=== PATIENT | female | born 1980 | race Asian ===

== ENCOUNTER 2019-02-13 08:28 | Emergency (ER) | payer OTHER ==
--- OUTSIDE RECORDS SUMMARY | 2019-02-13 08:38 | XMS REPORT | Continuity of Care Document ---
:1980 External Reference #:[id number] Author Name Daryn Farah Care Team Providers Name Role Phone Alivia Brice MD Primary Care Physician Unavailable Payers Date Identification Numbers Payment Provider Subscriber Policy Number: [id number] [employer] Sally Beckham Group Number: [id number] [address] PayID: [id number] [place] [address] Effective: 2011 Policy Number: [id number] Medicaid Sally Beckham Expires: 2014 Group Name: [id number] [address] PayID: [id number] [place] [address] Problems Active Problems Provider Date Atypical glandular cells on cervical Papanicolaou Sarah Talamantes M.D. Onset: smear Family History Date Family Member(s) Observation Comments First Son Alive And Well Social History Type Date Description Comments Sex Unknown Marital Status Lives With Boyfriend Lives With Son ETOH Use Currently consumes 1 - 2 wine or alcohol whiskey Tobacco Use Start: Unknown End: Patient is a former Unknown smoker Smoking Status Reviewed: 02/06/19 Patient is a former smoker Exercise Exercises regularly 2 - 3 days weekly Type/Frequency running, yoga Allergies, Adverse Reactions, Alerts Description No Known Drug Allergies Medications Active Medications SIG Qnty Indications Ordering Date Provider Ibuprofen 1 tab by mouth 30tabs S16.1xxA Kathleen Lizama, 02/06/2019 600mg Tablets three times a M.D. day as needed Cyclobenzaprine HCL take 1 tablet 14tabs S16.1xxA Kathleen Lizama, 2018 5mg by mouth bid M.D. Tablets Altavera take 1 tablet 28tabs Nancy Alen, 0.15-30mg-mcg daily N.P. Tablets History Medications Vivotif one by mouth 4caps Z00.00 Nancy Alen, 01/04/2019 - Capsules DR every other day N.P. 01/12/2019 for 4 doses Fluticasone Propionate 2 sprays each 16gm 461.8 Daryn Quiroz NP 06/18/2014 - nostril qd. 1 07/02/2014 50mcg/Act Suspension spray each nostril after two weeks. Amoxicillin/Clavulanate take one tablet 14tabs 461.8 Daryn Quiroz NP 2013 - Potassium q12 hours for 7 07/02/2014 875-125mg Tablets days Benzonatate take one or two 30caps 461.8 Daryn Quiroz NP 06/18/2014 - 100mg Capsules capsules every 07/02/2014 8 hours as needed for cough. Ciprofloxacin HCL one po bid for 14tabs 599.0 Nancy Lowry, 04/07/2013 - 250mg 7 days N.P. 04/14/2013 Tablets Ciprofloxacin HCL 1 tab bid x 5 10tabs 599.0 Jojoheydi Rogers, 01/26/2013 - 250mg days N.P. 04/07/2013 Tablets Fluticasone Propionate 1 spray each 16gm 477.0 Sarah Talamantes, 01/09/2013 - nostril daily M.D. 06/18/2014 50mcg/Act Suspension as needed Azithromycin two tabs day 6tabs 461.9 Nancy Lowry, 10/13/2012 - 250mg Tablets one, one daily N.P. 10/23/2012 until gone Ipratropium [place] 2 sprays in 15ml 461.9 Nancy Lowry, 10/13/2012 - 0.06% each nostril N.P. 10/27/2012 Solution tid until better Erythromycin apply to eyelid 3.500gm 372.00 Sarah Talamantes, 10/07/2012 - 5mg/GM four times M.D. 10/13/2012 Ointment daily for 5 days. Keflex 1 po tid 21caps 682.8 Bj 07/20/2012 - 500mg Capsules Brittany Yepez 10/13/2012 Triamcinolone Acetonide apply thin film 30gm 709.9 Sarah Talamantes, 2011 - twice daily M.DNavdeep 07/20/2012 0.1% Cream Phenazopyridine HCL 1 tab by mouth 20tabs Nancy Lowry, - 200mg three times a N.P. 04/11/2014 Tablets day as needed Immunizations CPT Code Status Date Vaccine Reaction Lot # [id number] Given 01/04/2019 Hepatitis A Vaccine Adult No immediate [id number] Dosage reaction... [id number] Given 06/03/2018 Influenza Virus Vaccine, Quadrivalent, Split, Preservative Free [id number] Given 05/13/2012 Fluzone Vaccine [id number] Given 05/13/2012 Tdap - [id number] Tetanus/Diptheria/Acellular Pertussis Vital Signs Date Vital Result Comment 02/06/2019 8:38am Height 65 inches 5'5" Weight 117.00 lb Heart Rate 65 /min BP Systolic Sitting 92 mmHg BP Diastolic Sitting 64 mmHg Pain Level 4 O2 % BldC Oximetry 98 % BMI (Body Mass Index) 19.5 kg/m2 01/04/2019 2:33pm Height 65 inches 5'5" Weight 118.25 lb Heart Rate 54 /min BP Systolic Sitting 106 mmHg BP Diastolic Sitting 69 mmHg Body Temperature 97.9 F O2 % BldC Oximetry 97 % BMI (Body Mass Index) 19.7 kg/m2 01/03/2018 1:24pm Height 64 inches 5'4" Weight 118.00 lb Heart Rate 59 /min BP Systolic 96 mmHg BP Diastolic 58 mmHg Body Temperature 98.2 F O2 % BldC Oximetry 100 % BMI (Body Mass Index) 20.3 kg/m2 Waist Circumference 28 10/05/2017 9:08am Height 65 inches 5'5" Weight 117.75 lb Heart Rate 49 /min BP Systolic 104 mmHg BP Diastolic 60 mmHg O2 % BldC Oximetry 97 % BMI (Body Mass Index) 19.6 kg/m2 09/21/2016 10:49am Height 65 inches 5'5" Weight 117.00 lb Heart Rate 52 /min BP Systolic Sitting 112 mmHg BP Diastolic Sitting 60 mmHg Respiratory Rate 15 /min Body Temperature 98.2 F O2 % BldC Oximetry 98 % BMI (Body Mass Index) 19.5 kg/m2 01/31/2015 10:02am Height 65 inches 5'5" Weight 116.00 lb Heart Rate 46 /min BP Systolic 101 mmHg BP Diastolic 61 mmHg Body Temperature 98.3 F BMI (Body Mass Index) 19.3 kg/m2 07/02/2014 9:35am Height 65 inches 5'5" Weight 115.00 lb Heart Rate 60 /min BP Systolic Sitting 100 mmHg BP Diastolic Sitting 60 mmHg Body Temperature 98.2 F O2 % BldC Oximetry 98 % BMI (Body Mass Index) 19.1 kg/m2 06/18/2014 10:05am Weight 114.00 lb Heart Rate 66 /min BP Systolic Sitting 96 mmHg BP Diastolic Sitting 62 mmHg Body Temperature 98.6 F O2 % BldC Oximetry 98 % 04/11/2014 11:23am Height 65 inches 5'5" Weight 116.00 lb Heart Rate 60 /min BP Systolic Sitting 104 mmHg BP Diastolic Sitting 60 mmHg BMI (Body Mass Index) 19.3 kg/m2 04/07/2013 3:44pm Weight 116.00 lb Heart Rate 62 /min BP Systolic Sitting 110 mmHg BP Diastolic Sitting 66 mmHg Body Temperature 97.7 F 01/26/2013 11:29am Height 64.75 inches 5'4.75" Weight 114.75 lb Heart Rate 60 /min BP Systolic Sitting 106 mmHg BP Diastolic Sitting 80 mmHg Body Temperature 97.8 F BMI (Body Mass Index) 19.2 kg/m2 01/09/2013 11:55am Weight 117.00 lb Heart Rate 64 /min BP Systolic Sitting 118 mmHg BP Diastolic Sitting 72 mmHg Body Temperature 97.7 F 10/13/2012 11:59am Height 64.5 inches 5'4.50" Weight 117.00 lb Heart Rate 62 /min BP Systolic Sitting 118 mmHg BP Diastolic Sitting 66 mmHg BMI (Body Mass Index) 19.8 kg/m2 10/13/2012 11:52am Height 64.5 inches 5'4.50" Heart Rate 64 /min 10/07/2012 9:37am Height 64.5 inches 5'4.50" Weight 116.00 lb Heart Rate 62 /min BP Systolic Sitting 90 mmHg BP Diastolic Sitting 66 mmHg Body Temperature 98.7 F Tympanically BMI (Body Mass Index) 19.6 kg/m2 07/20/2012 9:02am Height 64.5 inches 5'4.50" Weight 117.00 lb Heart Rate 53 /min BP Systolic Sitting 96 mmHg BP Diastolic Sitting 80 mmHg BMI (Body Mass Index) 19.8 kg/m2 05/30/2012 2:39pm Height 64.5 inches 5'4.50" Weight 115.00 lb Heart Rate 60 /min BP Systolic Sitting 98 mmHg BP Diastolic Sitting 70 mmHg BMI (Body Mass Index) 19.4 kg/m2 05/25/2012 1:44pm Height 64.5 inches 5'4.50" Weight 114.00 lb Heart Rate 68 /min BP Systolic Sitting 100 mmHg BP Diastolic Sitting 64 mmHg BMI (Body Mass Index) 19.3 kg/m2 05/13/2012 1:22pm Height 64.5 inches 5'4.50" Weight 113.00 lb Heart Rate 66 /min BP Systolic Sitting 90 mmHg BP Diastolic Sitting 60 mmHg BMI (Body Mass Index) 19.1 kg/m2 Results Test Date Facility Test Result H/L Range Note Lipid Profile 12/29/2018 [facility] Triglycerides 101 mg/dL 1 (Trig/Chol/HDL) [address] [place] [address] [phone] Cholesterol 169 mg/dL 2 HDL Cholesterol 64.1 mg/dL 3 LDL Cholesterol 85 mg/dL 4 Laboratory test 12/29/2018 [facility] Glucose 78 mg/dL N 70- [address] [place] [address] [phone] Laboratory test 09/21/2016 [facility] Cytology SEE RESULT [address] [place] [address] [phone] HPV Rna Ww/Reflex Genotype Negative N Negative 6 Lipid Profile 09/09/2016 [facility] Triglycerides 99 mg/dL N 7 (Trig/Chol/HDL) [address] [place] [address] [phone] Cholesterol 156 mg/dL N 8 HDL Cholesterol 60.7 mg/dL N 9 LDL Cholesterol 76 mg/dL N 10 Comp Metabolic Panel 09/09/2016 [facility] Sodium 136 mmol/L N 133-[address] [place] [address] [phone] Potassium 4.5 mmol/L N 3.5-5.0 Chloride 103 mmol/L N 101-111 Co2 Carbon Dioxide 27 mmol/L N 22-32 Anion Gap 6 mmol/L N 2-11 Glucose 82 mg/dL N 70-100 Blood Urea Nitrogen 12 mg/dL N 6-24 Creatinine 0.76 mg/dL N 0.51-0.95 BUN/Creatinine Ratio 15.8 N 8-20 Calcium 9.1 mg/dL N 8.6-10.3 Total Protein 7.0 g/dL N 6.4-8.9 Albumin 4.0 g/dL N 3.2-5.2 Globulin 3.0 g/dL N 2-4 Albumin/Globulin Ratio 1.3 N 1-3 Total Bilirubin 1.00 mg/dL N 0.2-1.0 Alkaline Phosphatase 35 U/L N 34-104 Alt 12 U/L N 7-52 Ast 19 U/L N 13-39 Egfr Non- 86.1 N >60 Egfr 110.7 N >60 11 Laboratory test 01/31/2015 [facility] Cytology SEE RESULT BELOW 12 finding [address] [place] [address] [phone] HPV Rna Ww/Reflex Genotype Negative N Negative 13 Ua Routine 04/07/2013 [facility] Ua Specific [place] 1.005 Ua PH 8 Ua Color yellow Ua Appera cloudy Ua WBC small Ua Protein 300+ Ua Glucose neg Ua Ketones neg Ua Bilirubin neg Ua Urobilinogen neg Ua Nitrite neg Ua Occult Blood non hemo trace Urine Culture And 04/07/2013 [facility] Urine Culture (SEE NOTE ) 14 [address] [place] [address] [phone] Ua Routine 01/26/2013 [facility] Ua Specific 1.010 [place] Ua PH 5.0 Ua Color orange Ua Appera clear Ua WBC ? orange Ua Protein ? orange Ua Glucose negative Ua Ketones negative Ua Bilirubin ? orange Ua Urobilinogen ? orange Ua Nitrite ? orange Ua Occult Blood large ++ Urine Culture And 01/26/2013 [facility] Urine Culture (SEE NOTE ) 15 [address] [place] [address] [phone] Urinalysis 09/10/2012 [facility] Urine Color Red [address] [place] [address] [phone] Urine Appearance Turbid Urine Specific [place] 1.031 High 1.010-1.030 Urine Esterase 3+ Abnormal Negative Urine Nitrate Positive Abnormal Negative Urine Urobilinogen Positive E.U./dL Abnormal Negative Urine Protein 3+ mg/dL Abnormal Negative Urine pH 5.5 5-9 Urine Blood 3+ Abnormal Negative Urine Ketones 2+ mg/dL Abnormal Negative Urine Bilirubin 3+ Abnormal Negative 16 Urine Glucose Trace mg/dL Abnormal Negative Urine Microscopic 09/10/2012 [facility] Urine WBC 3+ (>30 None Seen [address] /hpf) [place] [address] [phone] Urine RBC 3+ (>10 /hpf) None Seen Bacteria Urine 2+ None Seen Urine Culture And 09/10/2012 [facility] Urine Culture (SEE NOTE ) [address] [place] [address] [phone] Laboratory test 05/13/2012 [facility] Cytology [address] ----- <[place] [address] NOTE> [phone] GC/Chlamydia Aptima 05/13/2012 [facility] [address] ----- <[place] [address] NOTE> [phone] Lipid Profile 05/11/2012 [facility] Triglyceride 87 mg/dL 40- 20 (Trig/Chol/HDL) DR[address] [place] [address] [phone] Cholesterol 147 mg/dL Less Than 200 20 High Density Lipoprotein 49 mg/dL 40-60 21 Cholesterol/HDL Ratio 3.00 AVERAGE 1-4.44 Low Density Lipoprotein 81 mg/dL Less Than 100 22 Laboratory test finding 05/11/2012 [facility] Glucose 78 mg/dL [address] [place] [address] [phone] 1 Desirable: <150 Borderline High: 150-199 High: 200-499 Very High: >500 2 Desirable: <200 Borderline High: 200-239 High: >239 3 Low: <40 Desirable: 40-60 High: >60 4 Desirable: <100 Near Optimal: 100-129 Borderline High: 130-159 High: 160-189 Very High: >189 5 SEE RESULT BELOW Name: SALLY BECKHAM : [address]: Nancy Lowry NP Acct: [id number] Unit: [id number] AGE: 36 Location: [facility] Re09/21/16 SEX: F Status: REG REF SPEC: [id number] CHELSEY: 09/21/[address]: Nancy Lowry NP REQ: [id number] RECD: 09/21/16 STATUS: SOUT _ ORDERED: IMAGE ANALYSIS, HPV/Thin Prep, HPV 16/18 GENE COMMENTS: [id number] FINAL DIAGNOSIS Negative for Intraepithelial lesion or Malignancy A. Ectocervical/Endocervical Specimen Adequacy: Satisfactory of evaluation Transformation zone component identified Patient Information: HPV: High risk HPV RNA testing regardless of pap results. HPV 16/18 Genotype Reflex Actual Specimen Date: 09/22/16 LMP If Unknown: 2 weeks ago Spec Date if unknown: 09/2015 ?: N Post Menopausal?: N Hysterectomy?: N Previous Abnormal Pap Smears?:Y If Yes, enter Diagnosis: Mild dysplasia 2011. Date Time Test Result Flag (u) Normal Range 09/21/16 1131 HPV RNA RFLX GE Negative Negative The high-risk HPV types detected by the assay include: 16, 18, 31, 33, 35, 39, 45, 51, 52, 56, 58, 59, 66, and 68. Signed (signature on file) NATASHA Henry (ASC) 09/22 1406 This Pap test was evaluated with the assistance of the YozioPrep Test Imaging System. Due to cytologic findings at the apple solutions consultant microscope, comprehensive manual rescreening by a Welding Pantograph Machine Operator may be required. The Pap Smear is a screening test designed to aid in the detection of premalignant and malignant conditions of the uterine cervix. It is not a diagnostic procedure and should not be used as the sole means of detecting cervical cancer. Both false- positive and false- negative reports do occur. Depending on your risk status, a Pap smear should be obtained and evaluated every 1-3 years. END OF REPORT * ML=Testing performed at Main Lab DEPARTMENT OF PATHOLOGY, [address] [place] [address] RUN DATE: 09/22/16 [facility] LAB LIVE PAGE 1 Patient: SALLY BECKHAM [id number] ([facility]) Arturo Velez M.D. Director [facility] # [id number] 6 The high-risk HPV types detected by the assay include: 16, 18, 31, 33, 35, 39, 45, 51, 52, 56, 58, 59, 66, and 68. 7 Desirable <150 Borderline high 150-199 High 200-499 Very High >500 8 Desirable <200 Borderline high 200-239 High >239 9 Low <40 Desirable: 40-60 High: >60 10 Desirable: <100 mg/dL Near Optimal: 100-129 mg/dL Borderline High: 130-159 mg/dL High: 160-189 mg/dL Very High: >189 mg/dL 11 Because ethnic data is not always readily available, this report includes an eGFR for both -Americans and non- Americans. The National Kidney Disease Education Program (NKDEP) does not endorse the use of the MDRD equation for patients that are not between the ages of 18 and 70, are , have extremes of body size, muscle mass, or nutritional status, or are non- or non-. According to the National Kidney Foundation, irrespective of diagnosis, the stage of the disease is based on the level of kidney function: Stage Description GFR(mL/min/1.73 m(2)) 1 Kidney damage with normal or decreased GFR 90 2 Kidney damage with mild decrease in GFR 60-89 3 Moderate decrease in GFR 30-59 4 Severe decrease in GFR 15-29 5 Kidney failure <15 (or dialysis) 12 SEE RESULT BELOW Name: SALLY BECKHAM : [address]: Nancy Lowry NP Acct: [id number] Unit: [id number] AGE: 34 Location: [facility] Re01/31/15 SEX: F Status: REG REF SPEC: [id number] CHELSEY: 01/31/15-[address]: Nancy Lowry NP REQ: [id number] RECD: 01/31/15 STATUS: SOUT _ ORDERED: IMAGE ANALYSIS, HPV/Thin Prep, HPV 16/18 GENE FINAL DIAGNOSIS Negative for Intraepithelial lesion or Malignancy A. Ectocervical/Endocervical Specimen Adequacy: Satisfactory of evaluation Transformation zone component identified Patient Information: HPV: High risk HPV RNA testing regardless of pap results. HPV 16/18 Genotype for HPV pos Actual Specimen Date: 01/31/15 LMP If Unknown: unknown ?: N Post Menopausal?: N Hysterectomy?: N Previous Abnormal Pap Smears?:N Date Time Test Result Flag (u) Normal Range 01/31/15 1135 HPV RNA RFLX GE Negative Negative The high-risk HPV types detected by the assay include: 16, 18, 31, 33, 35, 39, 45, 51, 52, 56, 58, 59, 66, and 68. Signed (signature on file) NATASHA Henry (ASCP) 02/01 1529 This Pap test was evaluated with the assistance of the Memonicp Test Imaging System. Due to cytologic findings at the apple solutions consultant microscope, comprehensive manual rescreening by a Welding Pantograph Machine Operator may be required. The Pap Smear is a screening test designed to aid in the detection of premalignant and malignant conditions of the uterine cervix. It is not a diagnostic procedure and should not be used as the sole means of detecting cervical cancer. Both false- positive and false- negative reports do occur. Depending on your risk status, a Pap smear should be obtained and evaluated every 1-3 years. END OF REPORT * ML=Testing performed at Main Lab DEPARTMENT OF PATHOLOGY, [address] [place] [address] Arturo Velez M.D. Director [facility] # [id number] 13 The high-risk HPV types detected by the assay include: 16, 18, 31, 33, 35, 39, 45, 51, 52, 56, 58, 59, 66, and 68. 14 RUN DATE: 04/10/13 [facility] LAB LIVE PAGE 1 RUN TIME: [address] [place] [address] Specimen Inquiry Name: SALLY BECKHAM : [address]: Nancy Lowry NP Acct: [id number] Unit: [id number] AGE: 32 Location: [facility] Re04/07/13 SEX: F Status: REG REF SPEC: [id number] CHELSEY: 04/07/13-[address]: Nancy Lowry NP REQ: [id number] RECD: 04/07/13 STATUS: COMP _ SOURCE: URINE SPDESC: ORDERED: Urine Culture QUERIES: Medent Number [id number] Procedure Result Verified Site Urine Culture Final 04/10/13- 0911 ML Organism 1 STAPHYLOCOCCUS SAPROPHYTICUS Taiban Count >100,000 (Many) CFU/ML Routine sensitivity testing of urine isolates of S. saprophyticus is not advised, because infections respond to concentrations achieved in urine of antimicrobial agents commonly used to treat acute, uncomplicated urinary tract infections (e.g. nitrofurantoin, trimethoprim+/- sulfamethoxazole, or a fluoroquinolone). NCC September 2001 END OF REPORT * ML=Testing performed at Main Lab DEPARTMENT OF PATHOLOGY, [facility] [place] [address] Arturo Velez M.D. Director [facility] Permit #[id number] RUN DATE: 01/28/13 [facility] LAB LIVE PAGE 1 RUN TIME: 940 [facility] [employer] [place], [place] [address] Specimen Inquiry Name: SALLY BECKHAM : [address]: Jojo Rogers NP Acct: [id number] Unit: [id number] AGE: 32 Location: [facility] Re01/26/13 SEX: F Status: REG REF SPEC: [id number] CHELSEY: 01/26/13-[address]: Jojo Rogers NP REQ: [id number] RECD: 01/26/13 STATUS: COMP _ SOURCE: URINE SPDESC: ORDERED: Urine Culture QUERIES: Medent Number [id number] Procedure Result Verified Site Urine Culture Final 01/28/13- 0941 ML No Growth Day 2 (<1,000 CFU/mL) END OF REPORT * ML=Testing performed at Main Lab DEPARTMENT OF PATHOLOGY, [address] [place] [address] Arturo Velez M.D. Director [facility] Permit #[id number] 16 Effective 08/03/12, bilirubin confirmation by ictotest is discontinued. False-positive results for bilirubin may occur due to color interference from large amounts of blood in the urine, very concentrated urine, or drugs that discolor urine such as phenazopyridine(Pyridium). 17 RUN DATE: 09/12/12 [facility] LAB LIVE PAGE 1 RUN TIME: [address] [place] [address] Specimen Inquiry Name: SALLY BECKHAM : [address]: Jason Hale MD Acct: [id number] Unit: [id number] AGE: 32 Location: ED Re09/10/12 SEX: F Status: DEP ER SPEC: [id number] CHELSEY: 09/10/[address]: Robb RIZO REQ: [id number] RECD: 09/10/12 STATUS: BC GIBSON DR: Vinita JHA,Sarah Hale MD _ SOURCE: URINE SPDESC: ORDERED: Urine Culture Procedure Result Verified Site Urine Culture Final 09/12/12- 45 ML Organism 1 ESCHERICHIA COLI Taiban Count >100,000 (Many) CFU/ML 1. ESCHERICHIA COLI M.I.C. RX --------- ------ Amikacin <=2 S Ampicillin <=2 S * Ampicillin/Sublactam <=2 S Cefazolin <=4 S Cefepime <=1 S Cefoxitin <=4 S Ceftazidime <=1 S Ceftriaxone <=1 S Ciprofloxacin <=0.25 S Gentamicin <=1 S Imipenem <=1 S Levofloxacin <=0.12 S Nitrofurantoin <=16 S Piperacillin <=4 S Tigecycline <=0.5 S Trimethoprim/Sulfamethoxazole <=20 S * These antibiotics are not available in the [facility] Formulary Contact the Microbiology Department for any additional antibiotic reporting. END OF REPORT * ML=Testing performed at Main Lab DEPARTMENT OF PATHOLOGY, [address] [place] [address] Arturo Velez M.D. Director [facility] Permit #[id number] 18 ---- RUN DATE: 05/19/12 [facility] [place] NMI LIVE PAGE 1 RUN TIME: 914 Specimen Inquiry RUN USER: INTERFACE -- Name: SALLY BECKHAM Status: REG REF Re05/13/12 Age/Sex: 31/F Unit#: [id number] Location: [facility] : [birth year] -- Specimen: [id number] Spec Date:05/13/[address] [facility] Dr: Sarah Clayton Spec Type: CYTOLOGY Received:05/16/12 Copies to: SOURCE ECTOCERVICAL/ENDOCERVICAL Thin Prep with Reflex HPV Test PATIENT INFORMATION ACTUAL COLLECTION DATE: 05/13/12 ? No POST MENOPAUSAL? No HYSTERECTOMY? No PREVIOUS ABNORMAL PAP SMEARS No PATIENT HISTORY: Last menstrual period 04/2012 ADEQUACY OF SPECIMEN Satisfactory for evaluation * Transformation zone component identified * DIAGNOSIS EPITHELIAL CELL ABNORMALITIES * Low grade squamous intraepithelial lesion (LSIL) encompassing: * HPV/mild dysplasia/BRENDON 1 * SUGGESTIONS Consider colposcopy, if clinically indicated * NOTE Specimen sent to [facility] in [place], [place] on 05/16/12 by DB at 1047. Results will be reported separately in an addendum. ADDENDUM Addendum #1 Entered: 05/19/12 Dom Human Papilloma Virus test results received with preparation and diagnosis completed by [facility], [place], [place]. -- DEPARTMENT OF PATHOLOGY, [address] [place] [address] [facility] Permit #[id number] Brittany Okeefe M.D. Food Service Attendant Dir ena -- -- RUN DATE: 05/19/12 [facility] [place] NMI LIVE PAGE 2 RUN TIME: 914 Specimen Inquiry RUN USER: INTERFACE -- Name: SALLY BECKHAM Status: REG REF Re05/13/12 Age/Sex: 31/F Unit#: [id number] Location: [facility] : [birth year] -- -- CONTINUED -- ADDENDUM (Continued) Results: POSITIVE High Risk (for one or more of types 16, 18, 31, 33, 35, 39, 45, 51, 52, 56, 58, 59, 68) These high/indeterminate risk HPV types are associated with dysplasia and some cervical cancers. This test was developed and its performance characteristics determined by Laboratory Medicine and Pathology, [facility], [place], [place]. It has not been cleared or approved by the U.S. Food and Drug Administration. Test Performed by: [facility] Dpt of Lab Med and Pathology [address] [place] [address] Quality Control Microbiology Supervisor: French Byers III, M.D. Original hard copy report from [employer] is available upon request by calling Pathology at [phone]. Addendum Review Forrest ANDRADE([facility]) 05/19/12 -- This Pap test was evaluated with the assistance of the YozioPrep Pap Test Imaging System. Due to cytologic findings at the apple solutions consultant microscope, comprehensive manual rescreening by a Welding Pantograph Machine Operator was required. The Pap Smear is a screening test designed to aid in the detection of premalign ant and malignant conditions of the uterine cervix. It is not a diagnostic procedure a nd should not be used as the sole means of detecting cervical cancer. Both false- positiv e and false-negative reports do occur. Depending on your risk status, a Pap smear ann uld be obtained and evaluated every one to three years. Initial evaluation performed by Forrest ANDRADE(AS[facility]) 05/16/12 -- DEPARTMENT OF PATHOLOGY, [address] [place] [address] [facility] Permit #[id number] Brittany Okeefe M.D. Food Service Attendant Dir ena -- -- RUN DATE: 05/19/12 [facility] [place] NMI LIVE PAGE 3 RUN TIME: 914 Specimen Inquiry RUN USER: INTERFACE -- Name: SALLY BECKHAM Status: REG REF Re05/13/12 Age/Sex: 31/F Unit#: [id number] Location: [facility] : [birth year] -- -- CONTINUED -- Final Interpretation electronically signed by: ARTURO VELEZ MD 05/16/12 14 -- -- DEPARTMENT OF PATHOLOGY, [address] [place] [place] [address] [facility] Permit #[id number] Brittany Okeefe M.D. Food Service Attendant Dir ena -- 19 RUN DATE: 05/17/12 [facility] [place] NMI LIVE PAGE 1 RUN TIME: 7093 Specimen Inquiry RUN USER: INTERFACE Name: SALLY BECKHAM Status: REG REF Re05/13/12 Age/Sex: 31/F Unit#: [id number] Location: [facility] : 80 SPEC #: [id number] CHELSEY: 05/13/12 STATUS: COMP REQ #: [id number] RECD: 05/13/[address] [facility] [address]: Sarah Talamantes MD SOURCE: THIN PREP ENTR: 05/13/12 [facility] DR: EDWARD: ORDERED: GC/CHL APTIMA QUERIES: MEDENT REQUISITION # [id number] ACT WKST: GCCHL 05/17/12 #1 Procedure Result Verified Site > CHLAMYDIA TRACHOMATIS RNA Final 05/17/12- 1412 ML NEGATIVE FOR CHLAMYDIA TRACHOMATIS rRNA A negative result does not preclude the presence of a C.trachomatis or N.gonorrhoeae infection because results are dependent on adequate specimen collection, absence of inhibitors, and sufficient rRNA to be detected. Test results may be affected by improper specimen collection, improper specimen storage, technical error, or specimen mixup. Limitations of the Procedure: The Aptima Combo 2 Assay is not intended for the evaluation of suspected sexual abuse or for other medico-legal indications. For those patients for whom a false positive result may have adverse psychosocial impact, the [facility] recommends retesting by a method using an alternate technology. Therapeutic failure or success cannot be determined with the Aptima Combo 2 Assay since nucleic acid may persist following appropriate antimicrobial therapy. Results from the APTIMA Combo 2 Assay should be interpreted in conjunction with other laboraotry and clinical data available to the clinician. Performance characteristics for detecting C. trachomatis and N. gonorrhoeae are derived from high prevalence populations. Positive results in low prevalence populations should be interpreted carefully with the understanding that the likelihood of a false positive may be higher than a true positive. DEPARTMENT OF PATHOLOGY, [address] [place] [address] [facility] Permit #[id number] Arturo Velez M.D. Director Albina Kenney M.D. Print Shop Assistant RUN DATE: 05/17/12 [facility] [place] NMI LIVE PAGE 2 RUN TIME: 1413 Specimen Inquiry RUN USER: INTERFACE Name: SALLY BECKHAM Status: REG REF Re05/13/12 Age/Sex: 31/F Unit#: [id number] Location: [facility] : 80 -- -- CONTINU ED Procedure Result Verified Site > GC (N. GONORRHOEAE) RNA Final 05/17/12- 1412 ML NEGATIVE FOR NEISSERIA GONORRHOEAE rRNA A negative result does not preclude the presence of a C.trachomatis or N.gonorrhoeae infection because results are dependent on adequate specimen collection, absence of inhibitors, and sufficient rRNA to be detected. Test results may be affected by improper specimen collection, improper specimen storage, technical error, or specimen mixup. Limitations of the Procedure: The Aptima Combo 2 Assay is not intended for the evaluation of suspected sexual abuse or for other medico-legal indications. For those patients for whom a false positive result may have adverse psychosocial impact, the CDC recommends retesting by a method using an alternate technology. Therapeutic failure or success cannot be determined with the Aptima Combo 2 Assay since nucleic acid may persist following appropriate antimicrobial therapy. Results from the APTIMA Combo 2 Assay should be interpreted in conjunction with other laboraotry and clinical data available to the clinician. Performance characteristics for detecting C. trachomatis and N. gonorrhoeae are derived from high prevalence populations. Positive results in low prevalence populations should be interpreted carefully with the understanding that the likelihood of a false positive may be higher than a true positive. - [facility] Permit #[id number] [address] [place] [id number] DEPARTMENT OF PATHOLOGY, [address] [place] [address] [facility] Permit #[id number] Arturo Velez M.D. Director Albina Kenney M.D. Print Shop Assistant 20 CHOLESTEROL INTERPRETATION: Desirable: Less than 200 MG/DL Borderline-High Risk: 200-239 MG/DL High-Risk: 240 MG/DL and over 21 HDL INTERPRETATION: Undesirable: High Risk: Less than 40 MG/DL Desirable: Low Risk: Greater than 60 MG/DL 22 LDL INTERPRETATION: Low Risk Optimal Level: LDL Less than 100 MG/DL Near or Above Optimal: LDL 100-129 MG/DL Borderline High Risk: LDL 130-159 MG/DL High Risk: LDL 160-189 MG/DL Very High Risk: LDL Greater than 189 MG/DL Procedures Date Code Description Status 01/04/2019 98877 Admin & Interp Of Health Risk Assessment w/ Patient Completed 01/03/2018 17086 Admin & Interp Of Health Risk Assessment w/ Patient Completed 09/21/2016 50620 Admin & Interp Of Health Risk Assessment w/ Patient Completed Encounters Type Date Location Provider Dx Diagnosis Office Visit 01/04/2019 [facility] Internal Jordan Herrera00.00 Encntr for general 2:20p Medicine - [facility] N.P. adult medical exam w/o abnormal findings Z23 Encounter for immunization Office Visit 01/03/2018 1:00p [facility] Internal Jordan Herrera00.00 Encntr for Medicine - N.P. general adult [facility] medical exam w/o abnormal findings Office Visit 10/05/2017 9:00a [facility] Internal Alivia Z71.9 Counseling, Medicine Grady Brice M.D. unspecified [facility] Office Visit 09/21/2016 10:40a [facility] Internal Jordan Herrera00.00 Encntr for Medicine - N.P. general adult [facility] medical exam w/o abnormal findings Z87.410 Personal history of cervical dysplasia Office Visit 01/31/2015 10:00a [facility] Internal Nancy Lowry, V70.0 Examination Medicine - N.P. General Medical [facility] Routine AT Health Care Facility V13.22 Personal HX Of Cervical Dysplasia V72.31 Routine Construction Checker Examination Office Visit 07/02/2014 9:30a [facility] Internal Medicine - Daryn Quiroz NP 786.2 Cough [facility] 847.1 Sprains & Strains Thoracic Office Visit 06/18/2014 10:00a [facility] Internal Daryn Quiroz RAISE DRILLER 461.8 Sinusitis Acute Medicine - Other [facility] Office Visit 04/11/2014 11:20a [facility] Internal Nancy Lowry, V25.41 Contraceptive Pill Medicine - N.P. Surveillance [facility] Office Visit 04/07/2013 3:40p [facility] Internal Nancy Lowry, 599.0 UTI Urinary Tract Medicine - N.P. Infection Site Not [facility] Spec Office Visit 01/26/2013 11:30a [facility] Internal Jojo 788.1 Dysuria Medicine - Ken, N.P. [facility] 599.0 UTI Urinary Tract Infection Site Not Spec Office Visit 01/09/2013 11:40a [facility] Internal Sarah Talamantes, 477.0 Rhinitis Allergic Medicine - M.D. Due To Pollen [facility] Office Visit 10/13/2012 11:40a [facility] Internal Nancy Lowry, 461.9 Sinusitis Acute Medicine - N.P. Unspec [facility] Office Visit 10/07/2012 9:20a [facility] Internal Sarah Talamantes, 372.00 Conjunctivitis Acute Medicine - M.D. Unspec [facility] Office Visit 07/20/2012 9:00a [facility] Internal Bj 682.8 Cellulitis & Abscess Medicine - [place], Other Spec Sites [facility] M.D. Office Visit 05/30/2012 2:20p [facility] Internal Sarah Talamantes, 795.00 Abnormal Glandular Medicine - M.D. Pap Smear [facility] 709.9 Skin & Subcutaneous Tissue Disorders Unspec Office Visit 05/25/2012 1:40p [facility] Maria Elena Talamantes, 709.9 Skin & Subcutaneous Medicine - M.D. Tissue Disorders [facility] Unspec Office Visit 05/13/2012 1:00p [facility] Internal Sarah Talamantes, V70.0 Examination General Medicine - MSaul Medical Routine AT [facility] V72.31 Routine Construction Checker Examination V74.5 Screening Examination Venereal Disease V76.2 Screening Malignant Neoplasm Cervix V06.1 Hexplejdwm-Pcdqxui-Zssmjcwa Combined (DTaP) V04.81 Need For Prophylactic Vaccination & Inoculation/Influenza V25.09 Contraceptive Management Other Plan of Treatment Future Appointment(s):07/07/2019 9:00 am - Nurse Visit A at [facility] Internal Medicine - [facility]01/08/2020 9:20 am - Nancy Lowry NDusty. at [facility] Internal Medicine - [facility]02/06/2019 - Kathleen Lizama M.D.S16.1xxA Strain of muscle, fascia and tendon at neck level, initial eNew Medication:Ibuprofen 600 mg - 1 tab by mouth three times a day as neededCyclobenzaprine HCL 5 mg - take 1 tablet by mouth bidComments:apply heat , gentle stretches of the muscle will help improve the pain
[2019-02-13 08:45] VITALS: BP 109/72
--- NOTE | 2019-02-13 09:00 | UC ---
Abdominal Pain Female HPI - HPI Summary HPI Summary: 38 yo female presents with diarrhea. She tells me that yesterday afternoon she ate at the [employer] bar. About 5-6 hours later yesterday evening developed generalized abdominal cramping, nausea, vomiting, and diarrhea. This persisted until about 0300 this morning. Her abdominal discomfort and vomiting have resolved, but she still feels slightly nauseous. Since 0 she has had 3-4 episodes of bright red bloody stools. Last BM was about 3 hours. She is drinking water and gatorade, but has not had any food yet today. No one else with her ate the same meal. She denies fever, chills, flank pain, anal/rectal pain, or hx of IBD. Has never had blood in her stool in the past. - History of Current Complaint Chief Complaint: UCAbdominalPain Stated Complaint: DIARRHEA Time Seen by Provider: 02/13/19 09:00 Hx Obtained From: Patient Hx Last Menstrual Period: currently Onset/Duration: Sudden Onset Severity Initially: Mild Severity Currently: Mild Pain Intensity: 2 Pain Scale Used: 0-10 Numeric Allergies/Adverse Reactions: Allergies Allergy/AdvReac Type Severity Reaction Status Date / Time DAIRY Allergy Mild Abdominal Uncoded 02/13/19 08:45 Pain PMH/Surg Hx/FS Hx/Imm Hx - Additional Past Medical History Additional PMH: None Other History Of: Negative For: Anticoagulant Therapy - Surgical History Surgical History: Yes Surgery Procedure, Year, and Place: half of pancreas removed - Family History Known Family History: Positive: Unknown - adopted - Social History Occupation: Employed Full-time Lives: With Family Alcohol Use: Occasionally Substance Use Type: None Smoking Status (MU): Former Smoker Review of Systems All Other Systems Reviewed And Are Negative: Yes Constitutional: Positive: Negative Skin: Positive: Negative Respiratory: Positive: Negative Cardiovascular: Positive: Negative Gastrointestinal: Positive: Abdominal Pain - resolved, Vomiting - resolved, Diarrhea, Nausea Genitourinary: Positive: Negative Neurovascular: Positive: Negative Neurological: Positive: Negative Psychological: Positive: Negative Physical Exam - Summary Physical Exam Summary: GENERAL: NAD. WDWN. No pain distress. SKIN: No rashes, sores, lesions, or open wounds. NECK: Supple. Nontender. No lymphadenopathy. CHEST: CTAB. No r/r/w. No accessory muscle use. Breathing comfortably and in no distress. CV: RRR. Without m/r/g. Pulses intact. Cap refill <2seconds ABDOMEN: Soft. NTTP. No distention or guarding. No CVA tenderness. Bowel sounds present RECTAL: No hemorrhoid or fissures. NTTP. No stool or mireille blood in vault. Accompanied by Jovita CRAWLEY NEURO: Alert. PSYCH: Age appropriate behavior. Triage Information Reviewed: Yes Vital Signs: Initial Vital Signs Temp 98.8 F 02/13/19 08:38 Pulse 57 02/13/19 08:38 Resp 14 02/13/19 08:38 BP 109/72 02/13/19 08:38 Pulse Ox 100 02/13/19 08:38 Vital Signs Reviewed: Yes Abd Pain Female Course/Dx - Course Course Of Treatment: Pt is afebrile and well appearing at this time. She has had no more instances of diarrhea or bloody stools for the last ~3 hours. She is tolerating po fluids well. Suspect she may have a self-limiting process due to the food she ate yesterday. Advised to continue po fluids and advance diet slowly with BRAT diet. Will have her complete stool cultures for further testing of her bloody diarrhea. Advised to go to the ED if she develops a fever, worsening diarrhea, black tarry stools, or her pain returns. - Differential Dx/Diagnosis Provider Diagnosis: Bloody stool, Diarrhea Discharge - Sign-Out/Discharge Documenting (check all that apply): Patient Departure All imaging exams completed and their final reports reviewed: No Studies - Discharge Plan Condition: Stable Disposition: HOME Patient Education Materials: Acute Diarrhea (ED), Food Poisoning (ED) Referrals: Nancy Lowry NP [Primary Care Provider] - Additional Instructions: If you develop a fever, return of your abdominal pain, black tarry stool, shortness of breath, chest pain, new or worsening symptoms - please call your PCP or go to the ED immediately. Please complete the stool kit for further evaluation and guidance of proper treatment for your symptoms. - Billing Disposition and Condition Condition: STABLE Disposition: Home - Attestation Statements Provider Attestation: Per institutional requirements, I have reviewed the chart, however, I was not consulted specifically or made aware of this patient by the midlevel provider. I did not personally evaluate, interact with , or disposition this patient.
== END 2019-02-13 09:35 | disposition home or self-care (01) ==
LOC: UCEAST 08:28
DX: K92.1 Melena (principal); R19.7 Diarrhea, unspecified; Z87.891 Personal history of nicotine dependence
CPT/HCPCS: 99211; G0463